=== PATIENT | male | born 1965 | race African-American/Black ===

== ENCOUNTER 2019-02-20 16:45 | Emergency (ER) | payer BC, SELFPAY ==
[2019-02-20] MEDS ORDERED: Ketorolac Tromethamine 60 MG/2 ML VIAL ONE (17:04)
--- NOTE | 2019-02-20 23:38 | RAD ---
LEFT SHOULDER FOUR VIEWS: 02/20/2019 FINDINGS: No major fracture or dislocation is seen. Some spurring around the rim of the glenoid fossa is likel y related to old injury. There is a little bit of double density or irregularity along the superior rim of the humeral head that does not appear acute but could be due to an old injury. The space betw een the humeral head and the acromion is reduced, indicating there may be chronic rotator cuff thinni ng. Overall, the findings present seem chronic. They would be best evaluated by MRI. The visible a djacent ribs appear intact. The AC joint is not widened. IMPRESSION: Mild chronic changes in the glenohumeral joint, and questionable slight irregularity along the superi or aspect of the humeral head. If one desires to investigate further, then an MRI would be the best method of doing so. POS: HOME
== END 2019-02-20 17:40 | disposition home or self-care (01) ==
LOC: BURERS 16:45
DX: S43.402A Unspecified sprain of left shoulder joint, initial encounter (principal); E11.9 Type 2 diabetes mellitus without complications; I10 Essential (primary) hypertension; E78.5 Hyperlipidemia, unspecified; Z79.84 Long term (current) use of oral hypoglycemic drugs; Z79.899 Other long term (current) drug therapy; W01.0XXA Fall on same level from slipping, tripping and stumbling without subsequent striking against object, initial encounter
CPT/HCPCS: 96372; J1885